=== PATIENT | male | born 1990 | race Caucasian/White ===

== ENCOUNTER 2023-04-04 05:05 | Emergency (ER) | payer SELFPAY ==
[2023-04-04 05:11] VITALS: BP 140/81; PULSE 69; RESP 16; TEMP 36.6; O2SAT 100
--- NOTE | 2023-04-04 05:27 | ED.ABDPAIN1 ---
HPI - Abdominal Pain General Chief Complaint: Abdominal Pain Stated Complaint: R FLANK PAIN Time Seen by Provider: 04/04/23 05:20 Source: patient Mode of arrival: walk-in Limitations: no limitations History of Present Illness HPI narrative: presents to the ER complaining of right back pain, right flank and RLQ pain for past 3 weeks. Pain has progressively worsened. no fever . No urinary symptoms. past cholecystectomy. 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 Also significant weight loss in the past year. MD elicited complaint: Reports abdominal pain Related Data Allergies Allergy/AdvReac Type Severity Reaction Status Date / Time No Known Drug Allergies Allergy Verified 04/04/23 05:15 Review of Systems ROS Status of ROS 10 or more systems reviewed and unremarkable except as noted in history and below [facility] Social History Smoking status: Current every day smoker Exam Constitutional Vital Signs, click to edit/add: Last Vital Signs Temp 97.9 F 04/04/23 05:11 Pulse 69 04/04/23 05:11 Resp 16 04/04/23 05:11 BP 140/81 04/04/23 05:11 Pulse Ox 100 04/04/23 05:11 O2 Del Method Room Air 04/04/23 05:11 Common normals: average body habitus, oriented x3 and no limitations General appearance: in distress (mild) HENMT Common normals: normocephalic and head/scalp atraumatic Eye Common normals: EOMs intact bilaterally and conjunctivae normal Respiratory Common normals: normal respiratory effort, no retractions, no use of accessory muscles and clear to auscultation bilaterally Cardio Common normals: regular rate, regular rhythm, S1 normal heart sound and S2 normal heart sound GI Common normals: Normal to inspection, nondistended, normoactive bowel sounds present Other: mod tenderness right CVA and RLQ Other: normal circumcised male. nontender testes. no swelling. mild right inguinal tenderness but no obvious hernia Back & Pelvis Other: right lumbar paravertebral tenderness, right CVA tenderness Extremity Common normals: normal to inspection and full ROM Neuro Common normals: oriented x3, CN's II-XII intact bilaterally, moves all extremities and no focal motor deficits Psych Appearance: grossly normal Course Vital Signs Vital signs: Vital Signs Temperature 97.9 F 04/04/23 05:11 Pulse Rate 69 04/04/23 05:11 Respiratory Rate 16 04/04/23 05:11 Blood Pressure 140/81 04/04/23 05:11 Pulse Oximetry 100 04/04/23 05:11 Oxygen Delivery Method Room Air 04/04/23 05:11 Temperature 97.9 F 04/04/23 05:11 Pulse Rate 69 04/04/23 05:11 Respiratory Rate 16 04/04/23 05:11 Blood Pressure 140/81 04/04/23 05:11 Pulse Oximetry 100 04/04/23 05:11 Oxygen Delivery Method Room Air 04/04/23 05:11 MDM - Abdominal Pain MDM Narrative Medical decision making narrative: 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 Pain right back radiating around into his right groin for 3 weeks that has progressed. Hurts when he coughs. Has tenderness right lumbar paravertebral, CVA and RLQ. CT abd/pelvis without acute findings. No relief with Toradol. Add norflex and solumedrol for pain. labs all neg including lactic acid and UA. care transferred to Dr Buchanan at change of shift to re evaluate response to medication for pain and disposition the patient. At this time the pain appears musculoskeletal Lab Data Labs: Lab Results 04/04/23 04/04/23 Range/Units 05:20 05:22 WBC 9.0 (4.0-11.0) 10^3/uL RBC 4.80 (4.70-6.10) 10^6/uL Hgb 14.5 (14.0-18.0) g/dL Hct 43.4 (42.0-54.0) % MCV 90.4 (80.0-94.0) fL MCH 30.2 (25.9-34.0) pg MCHC 33.4 (29.9-35.2) g/dL RDW 14.0 (11.0-15.0) % Plt Count 294 (150-450) 10^3/uL MPV 10.4 (9.5-13.5) fL Neut % (Auto) 66.2 (43.0-75.0) % Lymph % (Auto) 21.9 (20.5-60.0) % [place] % (Auto) 9.2 (1.7-12.0) % Eos % (Auto) 1.7 (0.9-7.0) % Baso % (Auto) 0.6 (0.2-2.0) % Neut # (Auto) 6.0 (1.4-6.5) 10^3/uL Lymph # (Auto) 2.0 (1.2-3.8) 10^3/uL Emm[place] # (Auto) 0.8 (0.3-0.8) 10^3/uL Eos # (Auto) 0.2 (0.0-0.7) 10^3/uL Baso # (Auto) 0.1 (0.0-0.1) 10^3/uL Abs Immat Gran (auto) 0.04 H (0.00-0.03) 10^3/uL Imm/Tot Granulo (auto) 0.4 (0.0-0.5) % Sodium 135 L (136-145) mmol/L Potassium 4.0 (3.5-5.1) mmol/L Chloride 103 (98-107) mmol/L Carbon Dioxide 29.5 (21.0-32.0) mmol/L Anion Gap 6.5 BUN 7.0 (7.0-18.0) mg/dL Creatinine 0.84 (0.70-1.30) mg/dL Est GFR ( Amer) >60 (>=60) Est GFR (Non-Af Amer) >60 (>=60) BUN/Creatinine Ratio 8.3 Glucose 86 (74-106) mg/dL Lactate 0.7 (0.4-2.0) mmol/L Calcium 9.5 (8.5-10.1) mg/dL Total Bilirubin 0.9 (0.2-1.0) mg/dL AST 28 (15-37) U/L ALT 41 (16-63) U/L Alkaline Phosphatase 68 (46-116) U/L Total Protein 7.8 (6.4-8.2) g/dL Albumin 4.0 (3.4-5.0) g/dL Globulin 3.8 g/dL Albumin/Globulin Ratio 1.1 Lipase 18.0 (16.0-77.0) U/L Urine Color Lt. yellow (YELLOW) Urine Clarity Clear (CLEAR) Urine pH 7.0 (5.0-9.0) Ur Specific [place] 1.010 (1.005-1.025) Urine Protein Negative (NEG/TRACE) mg/dL Urine Glucose (UA) Negative (NEGATIVE) mg/dL Urine Ketones Negative (NEGATIVE) mg/dL Urine Occult Blood Negative (NEGATIVE) Urine Nitrite Negative (NEGATIVE) Urine Bilirubin Negative (NEGATIVE) Urine Urobilinogen 0.2 (0.2-1.0) EU/dL Ur Leukocyte Esterase Negative (NEGATIVE) Discharge Plan Discharge Chief Complaint: Abdominal Pain Clinical Impression: Abdominal pain Referrals: Physician,Non-Staff, MD [Primary Care Provider] - 1 week
--- NOTE | 2023-04-04 05:30 | CT_ITS ---
[address] [address] Patient Name: MANUEL CANNON MRN: [id number] date: 1990 Sex: M Assigned Patient Location: ER Current Patient Location: ER Accession/Order Number: [id number] Exam Date: 04/04/2023 05:39 Report Date: 04/04/2023 06:07 At the request of: JORDAN DICK Procedure: CT abdomen pelvis wo con EXAMINATION: CT abdomen pelvis wo con HISTORY: right flank pain COMPARISON: No relevant comparison available. TECHNIQUE: Axial, Coronal, and Sagittal images were obtained without and/or with IV contrast as indicated by examination type. Dose reduction techniques were achieved by using automated exposure control and/or adjustment of mA and/or kV according to patient size and/or use of iterative reconstruction technique. FINDINGS: LUNG BASES: No visible pulmonary or pleural disease. LIVER: No enlargement, atrophy, suspicious density, or significant focal lesion. BILIARY: Cholecystectomy. PANCREAS: No lesion, fluid collection, or abnormal duct dilatation. SPLEEN: No enlargement or focal lesion. ADRENALS: No mass or enlargement. KIDNEYS: No mass, obstruction, or calcification. BOWEL/MESENTERY: No visible mass, obstruction, or bowel wall thickening. Normal appendix. AORTA/VASCULAR: No aneurysm or dissection. RETROPERITONEUM: No mass or adenopathy. LYMPH NODES: No adenopathy. URINARY BLADDER: Empty. No visible focal wall thickening, lesion, or calculus. PELVIC ORGANS: No visible mass. Pelvic organs appropriate for patient age. ABDOMINAL WALL: No mass or hernia. BONES: No bony lesion or fracture. OTHER: Negative. CT/CT abdomen pelvis wo con IMPRESSION: 1. No acute or suspicious findings to account for patient's symptoms. Electronically authenticated by: ASHELY GARAY Date: 04/04/2023 06:07
--- NOTE | 2023-04-04 05:43 | PC.NURSE ---
Pt presents to ER for right sided flank pain that wraps around the front and into his groin Pt states he has had a cough and lower back pain for 2 weeks but it has gotten worse and tonight the pain became unbearable Pt states the worst of the pain is below his right ribs Pt is tender to palpation in flank and right sided abdomen Pt states the last several times he has urinated he has had a difficult time, but it has not been painful Pt does appear to be in discomfort and distress when coughing
[2023-04-04] MEDS: KETOROLAC TROMETHAMINE 30 MG/ML VIAL IM (05:59)
[2023-04-04] MEDS: 0.9 % SODIUM CHLORIDE 1,000 ML 999 ML IV (05:59)
[2023-04-04 06:22] LABS: Basophils Absolute Auto 0.1 10^3/uL (0.0-0.1); Basophils Percent Auto 0.6 % (0.2-2.0); Eosinophils Absolute Auto 0.2 10^3/uL (0.0-0.7); Eosinophils Percent Auto 1.7 % (0.9-7.0); Hematocrit 43.4 % (42.0-54.0); Hemoglobin 14.5 g/dL (14.0-18.0); Immature Granulocytes Abs Auto 0.04 10^3/uL (0.00-0.03); Immature Granulocytes Pct Auto 0.4 % (0.0-0.5); Lymphocytes Percent Auto 21.9 % (20.5-60.0); Mean Corpuscular HGB Conc 33.4 g/dL (29.9-35.2); Mean Corpuscular Hemoglobin 30.2 pg (25.9-34.0); Mean Corpuscular Volume 90.4 fL (80.0-94.0); Mean Platelet Volume 10.4 fL (9.5-13.5); Monocytes Absolute Auto 0.8 10^3/uL (0.3-0.8); Monocytes Percent Auto 9.2 % (1.7-12.0); Neutrophils Percent Auto 66.2 % (43.0-75.0); Platelet Count 294 10^3/uL (150-450)
[2023-04-04 06:23] LABS: Bilirubin Urine NEGATIVE (NEGATIVE); Blood Urine NEGATIVE (NEGATIVE); Clarity Urine CLEAR (CLEAR); Color Urine LT. YELLOW (YELLOW); Glucose Urine UA NEGATIVE (NEGATIVE); Ketones Urine NEGATIVE (NEGATIVE); Leukocyte Esterase Urine NEGATIVE (NEGATIVE); Nitrite Urine NEGATIVE (NEGATIVE); Protein Urine NEGATIVE (NEG/TRACE); Urine Microscopic Indicated NO; Urobilinogen Urine 0.2 EU/dL (0.2-1.0)
[2023-04-04] MEDS: ORPHENADRINE 60 MG/ 2 ML VIAL IV (06:31)
[2023-04-04 06:38] LABS: Alanine Aminotransferase 41 U/L (16-63); Albumin Globulin Ratio 1.1; Alkaline Phosphatase 68 U/L (46-116); Anion Gap 6.5; Aspartate Amino Transferase 28 U/L (15-37); BUN Creatinine Ratio 8.3; Bilirubin Total 0.9 mg/dL (0.2-1.0); Calcium 9.5 mg/dL (8.5-10.1); Carbon Dioxide 29.5 mmol/L (21.0-32.0); Chloride 103 mmol/L (98-107); Estimated GFR (African America >60 (>=60); Estimated GFR (Non-African Ame >60 (>=60); Globulin 3.8 g/dL; Glucose 86 mg/dL (74-106); Sodium 135 mmol/L (136-145); Total Protein 7.8 g/dL (6.4-8.2)
[2023-04-04 06:40] LABS: Lactate/Lactic Acid 0.7 mmol/L (0.4-2.0)
[2023-04-04] MEDS: METHYLPREDNISOLONE SOD SUCC PF 125 MG/2 ML VIAL IVP (07:01)
[2023-04-04 07:06] VITALS: BP 109/55; PULSE 66; RESP 18; O2SAT 100
== END 2023-04-04 07:17 | disposition home or self-care (01) ==
PROVIDERS: Internal Medicine; Emergency Provider Emergency Medicine
DX: S39.011A Strain of muscle, fascia and tendon of abdomen, initial encounter (principal); R10.9 Unspecified abdominal pain; X50.0XXA Overexertion from strenuous movement or load, initial encounter; Z90.49 Acquired absence of other specified parts of digestive tract; F17.210 Nicotine dependence, cigarettes, uncomplicated
CPT/HCPCS: 36415; 74176; 80053; 81003; 83605; 83690; 85025; 96372; 96374; 96375; 99284; J1885; J2360; J2930

== ENCOUNTER 2024-10-18 13:01 | Emergency (ER) | payer BC, SELFPAY ==
[2024-10-18 13:06] VITALS: BP 117/72; PULSE 79; TEMP 36.6; O2SAT 99; BMI 28.9
--- OUTSIDE RECORDS SUMMARY | 2024-10-18 13:09 | XMS_ITS | CCD ---
Author Organization [facility] Care Team Providers Care Technical Sales Support Manager Name Role Phone UNKNOWN, PROVIDER Unavailable Unavailable TUPA Unavailable Unavailable MUKUND SNELL Unavailable Unavailable PERRY, JIANLIN Unavailable Unavailable [place] Unavailable Unavailable PERRY, JIANLIN Unavailable Unavailable JINA SRIVASTAVA Primary Care Physician [phone] NO FAMILY, PHYSICIAN Primary Care Provider Unava ilable DO Oleg Xavier Emergency Provider [phone] Oleg Xavier Attending Unavailable Oleg Xavier Admitting Unavailable NO FAMILY, PHYSICIAN Primary Care Unavailable [place] DODylan Primary Care Provider [phone] Unallocated , [place] Provider Primary Care Provi marli CUTLER, DYLAN L Attending Unavailable CUTLER, DYLAN L Referring Unavailable CUTLER, DYLAN L Attending Unavailable CUTLER, DYLAN L Referring Unavailable CUTLER, DYLAN L Referring Unavailable Allergies Allergy Classification Reported Allergen(s) Allergy Type Date of Onset Reaction(s) Facility (1 source) HYDROcodone Drug Allergy 7 AOF [facility] Repository (3 sources) Bee/Wasp/Ant venom Drug allergy Swelling (morphologic abnormality) [facility] Edgar (2 sources) venom-honey bee; Translations: [venom-honey bee] Allergy to substance 3 Anaphylaxis [facility] Medications Current Medications Medication Drug Class(es) Dates Sig (Normalized) Sig (Original) acetaminophen 325 mg / HYDROcodone bitartrate 5 mg oral tablet (3 sources) Opioid Agonist Start: 04-26-2021 take 1 tablet by mouth every six hours Crucible 325 mg-5 mg oral tablet 1 tab(s), Oral, q6hr, 10 tab(s), Refill(s) 0, [facility], 176, cm, 04/26/21 15:30:00 EST, Height/Length Dosing, 128.1, kg, 04/26/21 15:30:00 EST, Weight Dosing Start Date: 04/26/21 Status: Ordered diazePAM 10 mg oral tablet (3 sources) Benzodiazepine Start: 04-26-2021 take 1 tablet by mouth once Valium 10 mg Tab 10 mg = 1 tab(s), Oral, Once, # 1 tab(s), Refills(s) 0, [facility]: [facility], 176, cm, 04/26/21 15:30:00 EST, Height/Length Dosing, 128.1, kg, 04/26/21 15:30:00 EST, Weight Dosing Start Date: 04/26/21 Status: Ordered ondansetron 4 mg disintegrating oral tablet (3 sources) Serotonin-3 Receptor Antagonist Start: 09-20-2020 take 4 mg by mouth every six hours Ondansetron Active 4 MG PO Q6H September 20, 2020 12:00am Start: 07-09-2018 End: 02-04-2020 take 4 mg by mouth every six hours Ondansetron Discontinued 4 MG PO Q6H July 09, 2018 12:00am February 04, 2020 8:38am Start: 01-29-2017 End: 02-01-2017 take 1 tablet by mouth every eight hours Ondansetron (Zofran Odt) 8 mg tablet,disintegrating Discontinued 8 MG PO Q8H January 29, 2017 1:00am February 01, 2017 2:02am 24 hr oxybutynin chloride 5 mg extended release oral tablet (4 sources) Cholinergic Muscarinic Antagonist Start: 03-14-2024 End: 03-14-2025 take 1 tablet by mouth once daily oxybutynin XL (Ditropan-XL) 5 MG 24 hr tablet Indications: Overactive bladder Take 1 tablet (5 mg) by mouth Daily Do not crush, chew, or split. 90 tablet 3 03/14/2024 03/14/2025 Active Completed/Discontinued Medications Medication Drug Class(es) Dates Sig (Normalized) Sig (Original) acetaminophen 500 mg oral tablet (1 source) Start: 01-21-2017 End: 01-31-2017 take 2 tablets by mouth every six hours Acetaminophen (Tylenol Extra Strength) 500 mg Tablet Discontinued 1000 MG PO Q6H January 21, 2017 1:00am January 31, 2017 12:08pm acetaminophen 325 mg / oxyCODONE hydrochloride 5 mg oral tablet (1 source) Opioid Agonist Start: 02-08-2017 End: 07-09-2018 take 1 tablet by mouth once daily Oxycodone-Acetamin ophen (Percocet) 5-325 mg Tablet Discontinued 1 TAB PO Daily February 08, 2017 1:00am July 09, 2018 10:32am [id number] 200 actuat albuterol 0.09 mg/actuat metered dose inhaler (1 source) beta2-Adrenergic Agonist Start: 02-04-2020 End: 04-03-2020 Albuterol Sulfate (Ventolin Hfa) 90 mcg/actuation HFA aerosol inhaler Discontinued 2 INH INHALATION every 6 to 8 hours February 04, 2020 1:00am April 03, 2020 12:44pm azithromycin 250 mg oral tablet (1 source) Macrolide Antimicrobial Start: 02-04-2020 End: 04-03-2020 Azithromycin Discontinued 0 PO .COMPLEX February 04, 2020 1:00am April 03, 2020 12:44pm take 500 mg today (day 1), then 250 mg for 4 days (days 2-5) diclofenac sodium 75 mg delayed release oral tablet (1 source) Nonsteroidal Anti-inflammatory Drug Start: 04-03-2020 End: 07-31-2020 take 75 mg by mouth twice daily Diclofenac Sodium Discontinued 75 MG PO Twice daily April 03, 2020 1:00am July 31, 2020 9:41am promethazine hydrochloride 25 mg oral tablet (2 sources) Phenothiazine Start: 02-08-2017 End: 07-09-2018 take 25 mg by mouth every six hours Promethazine Discontinued 25 MG PO Q6H February 08, 2017 1:00am July 09, 2018 10:32am Start: 01-22-2017 End: 01-31-2017 take 25 mg by mouth three times daily Promethazine Discontinued 25 MG PO Three times daily January 22, 2017 1:44am January 31, 2017 12:08pm Problems Active Problems Problem Classification Problem Date Documented Da te Episodic/Chronic Abdominal pain (2 sources) Epigastric pain; Translations: [Epigastric pain] 09-20-2020 Episodic Administrative/social admission (2 sources) Patient encounter status; Translations: [Encounter for blood-alcohol and blood-drug test] 09-16-2024 Episodic Biliary tract disease (6 sources) Cholecystitis, unspecified; Translations: [Calculus of gallbladder with acute cholecystitis without obstruction] Onset: 02-01-2017 02-01-2017 Episodic Contraceptive and procreative management (4 sources) Sterilization requested; Translations: [Encounter for sterilization] Onset: 06-10-2021 Episodic Genitourinary symptoms and ill-defined conditions (2 sources) Urinary incontinence; Translations: [Unspecified urinary incontinence] 02-08-2024 Chronic Genitourinary symptoms and ill-defined conditions (2 sources) Increased frequency of urination; Translations: [Frequency of micturition] 02-08-2024 Episodic Immunizations and screening for infectious disease (1 source) Contact with or exposure to other viral diseases; Translations: [COVID-19 ruled out by laboratory testing] 07-31-2020 Episodic Nausea and vomiting (3 sources) Nausea, vomiting and diarrhea; Translations: [Nausea with vomiting, unspecified] 09-20-2020 Episodic Other diseases of bladder and urethra (1 source) Overactive bladder; Translations: [Overactive bladder] 03-14-2024 Chronic Other gastrointestinal disorders (1 source) Diarrhea; Translations: [Diarrhea, unspecified] 07-09-2018 Episodic Other lower respiratory disease (1 source) Cough; Translations: [Cough] 07-04-2020 Episodic Other nutritional; endocrine; and metabolic disorders (3 sources) Body mass index 40+ - severely obese 04-26-2021 Chronic Other nutritional; endocrine; and metabolic disorders (3 sources) Unintentional weight loss; Translations: [Abnormal weight loss] 02-08-2024 Episodic Other screening for suspected conditions (not mental disorders or infectious disease) (4 sources) Finding related to measurement of toxic substance; Translations: [Abnormal level of other drugs, medicaments and biological substances in specimens from other organs, systems and tissues] 01-29-2017 Episodic Other upper respiratory infections (2 sources) Viral upper respiratory tract infection; Translations: [Acute upper respiratory infection, unspecified] Onset: 12-08-2022 12-08-2022 Episodic Substance-related disorders (2 sources) Nicotine dependence, cigarettes, uncomplicated; Translations: [Cocaine abuse] Onset: 02-01-2017 02-08-2017 Chronic Superficial injury; contusion (1 source) Contusion of left hand; Translations: [Contusion of left hand, initial encounter] 04-03-2020 Episodic Viral infection (1 source) Viral disease; Translations: [Viral infection, unspecified] 07-12-2020 Episodic Past or Other Problems Problem Classification Problem Date Documented Da te Episodic/Chronic Mood disorders (7 sources) Mood disorders Onset: 02-08-2024 02-08-2024 Unclassified (2 sources) Unknown / UNK(Unknown) Onset: 02-01-2017 Results Test Name Value Interpretation Reference Range Facility US RENAL COMPLETEon 03-12-19 US RENAL COMPLETE EXAM: Retroperitonea l Ultrasound: REASON FOR EXAM: Urinary incontinence. TECHNIQUE: Transabdominal scanning was performed, including color Doppler. FINDINGS: Right kidney: Normal renal cortical echogenicity. No stone, mass or hydronephrosis. Blood flow is intact with color Doppler. No cysts are identified. Left kidney: Normal renal cortical echogenicity. No stone, mass or hydronephrosis. Blood flow is intact with color Doppler. No cysts are identified. Bladder: No wall thickening or mass. Bilateral ureteral jets are noted with color Doppler. Prevoid bladder volume 234 cc, post void bladder volume 3 cc. Aorta: Normal. Inferior vena cava: Normal. Other: None. Measurements: Right Kidney: 11.4 x 6.8 x 5.8 cm Left Kidney: 11.1 x 4.5 x 5.6 cm Bladder: Prevoid: 234.3 cc Postvoid: 2.7 cc PVR: 1% IMPRESSION: Normal retroperitoneal ultrasound. *This report is generated using voice recognition reporting ([employer]). On occasion [employer] erroneously drops words from the report or replaces the spoken word with similar sounding words. Please call with any questions/concerns regarding this report.* Dictated and transcribed 03/13/24/dpd This report has been electronically signed and approved by the interpreting radiologist. Normal Not Available Comment on above: Order Comment: Pleas e include PVR Laboratory - Hematology and Cell countson 02-08-2024 HbA1c (Bld) [Mass fraction] 5.5 % [facility] No Panel Informationon 02-07 Interpretation and review of laboratory results Normal [facility] Urinalysis macro (dipstick) panel (U)on 02-08-2024 Bilirubin, UA Negative Negative - 4(70) +++ mg/dL [facility] Blood, UA Negative Negative - 50 Anupam/mcL [facility] Clarity, UA Clear [facility] Color, UA Louise [facility] Glucose, UA Negative Negative - 1999(110) ++++ mg/dL [facility] Interpretation and review of laboratory results Normal [facility] Ketones, UA Negative Negative - 160(16) ++++ mg/dL [facility] Leukocytes, UA Negative Negative - 500+++ Esperanza/mcL [facility] Nitrite, UA Negative Negative - Positive [facility] pH, UA 7 5 - 9 [facility] Protein, UA Negative Negative - 1999(20) ++++ mg/dL [facility] Spec Grav, UA 1.02 1 - 1.03 [facility] Urobilinogen, UA 0.2 0.2 - 12 mg/dL [facility] COVID CepheidOrdered By: Harmeet Xavier on 12-08-2022 SARS-CoV-2 (COVID-19) RNA KRISTEL+probe Ql (Unsp spec) [facility] SARS-CoV-2 (COVID-19) Ab IA Ql Negative Negative [facility] Comment on above: This is a duplicate Cepheid Xpert Xpress CoV-2/Flu/RSV Plus RNA by RT-PCR result to be used for statistical tracking purpose only. COVID-19 / Flu A/B / RSV PCR on 12-08-2022 SARS-CoV-2 (COVID-19) RNA KRISTEL+probe Ql (Unsp spec) COVID-19 Cepheid Result Negative for SARS-CoV-2 RNA by RT-PCR Flu A Cepheid Result Negative for Flu A RNA by RT-PCR Flu B Cepheid Result Negative for Flu B RNA by RT-PCR RSV Cepheid Result Negative for RSV RNA by RT-PCR COVID19 Blank Space ------ Reference: Negative COVID19 Blank Space ------ Cepheid Disclaimer The Cepheid Xpert Xpress CoV-2/Flu/RSV Plus has Cepheid Disclaimer not been FDA cleared or approved; this test has Cepheid Disclaimer been authorized by FDA under an EUA for use by Cepheid Disclaimer authorized laboratories; this test has been Cepheid Disclaimer authorized only for the simultaneous qualitative Cepheid Disclaimer detection and differentiation of nucleic acids from Cepheid Disclaimer SARS-CoV-2, influenza A, influenza B, and Cepheid Disclaimer respiratory syncytial virus (RSV), and not for any Cepheid Disclaimer other viruses or pathogens; and this test is only Cepheid Disclaimer authorized for the duration of the declaration that Cepheid Disclaimer circumstances exist justifying the authorization of Cepheid Disclaimer emergency use of in vitro diagnostic tests for Cepheid Disclaimer detection and/or diagnosis of COVID-19 under Cepheid Disclaimer Section 564(b)(1) of the Act, 21 U.S.C. 360bbb- Cepheid Disclaimer 3(b)(1), unless the authorization is terminated or Cepheid Disclaimer revoked sooner. PERFORMED BY: [place] [address] PATHOLOGIST CONFLICTS ANALYST YOAN LEMUS M.D. Normal [facility] Comment on above: Performed By: #### C OVID19 FLU RSV, CEPHEID NEG #### [address] Cepheid COVID PCR Negativeon 12-08-2022 SARS-CoV-2 (COVID-19) RNA KRISTEL+probe Ql (Unsp spec) Negative Normal Negative [facility] Comment on above: Result Comment: This is a duplicate Cepheid Xpert Xpress CoV-2/Flu/RSV Plus RNA by RT-PCR result to be used for statistical tracking purpose only. PERFORMED BY: [facility] [address] [place] [address] PATHOLOGIST CONFLICTS ANALYST YOAN LEMUS M.D. Performed By: #### C OVID19 FLU RSV, CEPHEID NEG #### [facility] [address] [place] [address] [facility] Quick Strepon 12-08-2022 Quick Strep Streptococcus pyogen es Ag [Presence] in Throat by Rapid immunoassay Negative for Group A Strep Antigen Note 1 NOTE 2 Results are those of a screening test. NOTE 3 If clinically indicated please order a culture. NOTE 4 NOTE 5 Reference range = Negative PERFORMED BY: [address] [place] [address] PATHOLOGIST CONFLICTS ANALYST YOAN LEMUS M.D. Normal [facility] Comment on above: Performed By: #### Q S #### [place] [id number] [facility] Streptococcus pyogenes antig en detectionOrdered By: Oleg Xavier on 12-08-2022 S. pyogenes Ag Ql (Unsp spec) [facility] Provider Letteron 06-28-2021 Provider Letter (Inserted Image. Roselia ble to display) June 28, 2021 MANUEL CANNON [address] [place] [address] MANUEL CANNON 1990 Dear Manuel, You missed your scheduled appointment on: June 28, 2021 and the purpose of this letter is to inform you of our *No Show Policy*. Our appointment slots fill rapidly and when we have a no show appointment that time is lost. We could have used that time slot to care for a patient who needed to see one of our providers. Therefore, we ask that you call 24 hours in advance to cancel your appointment. This policy is in place so that we can meet the needs of all of our patients and we do appreciate your understanding. Sincerely, [facility] [address] [place] [address] [facility] Coding Summary.on 06-20-2021 Coding Summary. [id number] Gh0b Ww+PGhlYWQ+LG3SBLLiS11ap KNawB6BN2gEHE8OQANTEJPAL Q1MEB2lcXB0AMnvC7MoyhNb CmrmdCXaPC35KSt9CMP8zOgw LAzjnV8lqJHuL7e7BuDiPR28 dM46TLgiBUOpJlD4EeXrkgah bWFy X1zrGnDmnSSaUnz+PHRhYmxl IHdpZHRoPScxMDAlJyBzdHls BE9pJq8qOYNfDTXrvHwhuGGn OiBj d1heZKHfCAojKS2ixTndM1Eo zBH0MXZyi1u7Mv49qLV+PHRk JPQ8mTgsGQzsi984YvYnu1kt IDM3 pBHpQDshTIM6S75it8H9SAQk UFPrFYH2yKQ3aD3miVvesotl M3ThfCWmQaQ3HKR0uKVfrY9y bGln udugpM7dMkk+D01BXG1DGJBQ VI1TQrn2N8MaWwqyzXC+PC90 MOYuZE18uKPdaEUma6fvmAz8 JzEw IRJiUYG1xEksRHero7YgSNJk Q98eiBXiq8V0OSOcdLxaoZIf TfRvvXD0nQ1zWRzjvotvh6kv dzsn Bgmpx5rdko90rG53Q03vCCar SABiYCM6BYSfKETmxFcgoe0g kW4mGe6+GGazs1emk2fmeDu9 IjIw JVBlcdIkhAtiKNB2z0DjXq46 G5GorBliu4OrGsr8to75aTEw q1O2uHM4IAdlZIIitW8mLDiq ZnQ6 TMHxQpKwlT13xVXiPIowAg6y iNdknSoeGE0aQGIbtwiyKICu vT0jAMBkqENilQtsLJ9kXSUm bjtm s705VpHoQHB8AZHdeGKgN1Yy sJ8nXsXvDJPbWGBwZ6HxuICk ZGzoD473OQdmWdF7WNZsecMs Y2Fs ZEDloRxoClW5i3M2Ns5Io6Mo pccxWVR7EMwfFJB8RyC7ChQw JvR8J1XjApe1KEPgwSgyKD8y J3Bh ZXFwuqiyglusuNI5SUTrPGIp sI71eDMvQIfkLl6ux3Q1l748 BWPmQZPlwO62Wu4gdCquGTCt dCBU wR1umhbbv3ipzknlNpTeLTZq FQz0LXc8HKZnaUxwKxDcHQD3 UvH4OBK0jFHgaN0zpGmhrncz dG9w Oyc+H20axZ7kMCM2KGQ5ynfb VKAdpwOzPE94FP84Y0LuDidb dGFibGU+HZGewsGsfAbwWS8d YmFj o0aln9OaGKbiU5KyOKQpAKzn Xpe9TSHhBXO1fUJ7yA1uSCSp FOdek6M1gWA9B2LxexWbfr7p b2xs XTZnNLbrV75rqKFcq0X2PFJd hIT1UZPosLxeWoPkaT20Ogr+ LAZhyKujl2ZwXygey8mgk1ka dGg9 MgVpNGLushQagVglTVJ8l0Py Bv56L92ePCzdNKBuIUScVDMm XWSvdDhylb1bkT4hUi3+PGNv bCB3 sBM3cN3tKTOgAbQ4KYimR284 UeAftOEjMhshe1qqx4pyhGa0 TqUbXLQdbpUytKgaCRJ1b9Bj Lz48 L00wHBqrZIEmKRQfWKJpQGLm vZbmtm8nnK0fHq2+OZ6zo2pp ay96uK85hZP+AMSqSDT9eIos PSdw PXGukE5qKRotVzQ2ARWuQdIi oK22eXPfEGjhOa3biQyfpFba HD7bMFWyioenr935XyHoo5us IDEw aRVnKOqpLHB6T40dy4X1PJKb XRPsIFW7sJD9bM5vtZjdjlrb bGVmdDsgdmVydGljYWwtYWxp Z246 IHRvcDsnPlBhdGllbnQgTmFt MPd3P7FrCww4EFDgaWvuEW3l rULdBExuNn1xrGxtjEijDD9t NTBp wuyhy217RlYjb0ngFWEekRNi YJpiCZW5A30it7R5VZXfOJOz KUY6sAR2aM9ixNsvyumioXHu dDsg aoVgpVuqTVskBYmpI610NGNd cKqtRqLionEsMZMzqWV0RN24 BT93tMGwp5V0oFC1O3HiXYZl bmct qcxszYX3IKMcEGSzqQ76Ve3d cQnmCd2uRLNrZEK2STQbxMTg E4SxbD3dBcZbKTZbUQAxN7Ek eHQt SEnmQ428BOkxEwM2NUCoiyPr P0RrTURblZznPgS6v3H3Tw1M U2J2FQ14IP87rLDnd2A4qOJ6 J3Bh CKBkqhwlgwckpHK8YSPqWFHb sW04Ty8rvCmeSo7tRZMyCUY1 KMMjcHLbQ0TfmK7tUuZwRAYz MDAw X8RseBKdFVjeC169ADxvQsI2 RMByiiLeB9LwPHKiwBwcGkT9 t2R0Ls5THUo1AG89QF91aLNo c3R5 iXX3R9LwSXKzlqmkgpulkEC1 IVUtFRWaxR61Tl4yfFydQm7z CAZoRLG0VALkrEWpI6MrlW3p OiAj JXYxXNNtI1EtsYHaMTxlR526 NAmkQlZ8DOKtneBuS9VjPQXo mYseHtV9a6Y5Hi9GSMFmGE56 IFR5 rDQ4QT42RV67M9NuCabyjIHg bGU+PHRhYmxlIHdpZHRoPScx ULNsTpQapUwsJY3mFc2aHLIf LWNv yBkuaSBbTbPpa6dcPOLhJVyj UW4npEovI8QanEA9VGYvs3k6 Pg45B82nL1BcsWX+PGNvbCB3 aWR0 vS4aYoMtZxO3OQwzI388QiDe gDSvTnhys5ucc2tipKx8XmX7 LOHipkUftCncMUL7z0JqJc12 Y29s IHdpZHRoPSIxNSUiIHZhbGln te3ntM3oXt3+MKReyIW8wZU4 jR4fPpQlWkE5AOtsW798VxUh cCIv Ljoxn6rgb4yjnSl4TjEsRIFi npPvtYwcFFD0j8FpHt15H0Ov zFvut1BjLsv5cu57qSIdr9O5 bGU9 W7ZqXMInqcwzfPXmpJnxVB8d GZKwmcifPZIioI3bIWPfW7m1 XkLgSkB4DNcrP2BraiZ7LHJo cHQg XYwgNGB2O96jv7X9WJJjKKUw LUP5wXJ0mR5spXfdmgzevAGr eNxyfeAwcYucSLfkSEkdQ453 IHRv bCtkAHDqbA1cHJCajEQziLqd DJ8eHLAxojgpErNKZcQPN5iy GG7SW4cYQGpwFOvmyYL+PHRk IHN0 vHsrDBitPGMlgQ9xEMTyL4y8 YnFcLqK5IXmiH1PyBDWmpzpo Cr53sH7tQtHvMyV7SPsyM8Jj bnQ6 ZSErjINvWKctQWY9J87iq7D5 YPCvQMWaCBM9oWB9nZ9reDtl bjogbGVmdDsgdmVydGljYWwt YWxp E184ZKOpoCjwAnKnBdMfZoX0 PHU7H0BrRye6PMQsvAadPB5f pYUbRKqyHu0gdIlipTjcHQ4s NTBp jjdzYTWstN5xMUVtlXOrbOns IG7cPKYlnyblh332BrMpTQX5 SXIdmFMpW1ApvW1eAbHuHUEj MDAw Q9BcrMEgVTfrO129GCduBtC8 TDFwmoLfW1GvQBCelTeoWrD1 f8H6Jh7bCjZYKFUhflehdBT+ PHRk QBP0yEslXWkuPUYolO4sQQIc X8o3PhZpKpQ2BFtqO8MsJFYx rpimLd07xZ4eVxSuIaL0QIyq O2Zv xsG8NBKecEPwJIneNGV4N38a o0O2FLTxQBCsDDQ3iGJ5xY8d bGlnbjogbGVmdDsgdmVydGlj YWwt WBvuY563GOXcdVakLm4ryYH5 A1PoUsk3TJEdlLpdFS8ysDMw MTfuIg1vqPxehPonME7xRXWc bjtw XBBehL9pHKCujDVkyMhzEX3g GHEpipnda040BrFxFCP9LVTf sQGsZ2LbxC3kIgZeZYUrDHBe O3Rl eVQwUJclY502MGpnYiL2HDXd dyPzT4VhEWIjdOffFeN3o2P5 Ku6YNWBmYMRnkORxEpD3X5Lk Pjwv dHI+FS79ACGiOA91wZSzqPCk e0wynQg4EiQnHGNvXFV2mTva VKmxu1RpAPBvU29hxFDhp1Q6 IGNv yAexuCWbXkQpgFQ4nR7hTJgr infni5edphijWlfvk9vbiv13 pJ36P87qGYsxFIIcHXCxEXEo IHZh tGpdkt3dcT5gOl7+PGNvbCB3 fNO1sH2rYaMrZaN6WSjfB037 PbOzeRCfSwomk6jjp2ualYa7 IjIw VBJvuwWxtCphDNA6y0UsWp34 Q53bHEzjGGYlXIMySQVaZBWb pHaakr8hqD5iUj6+IA1fz1ls cm91 dC91kDY+DQNhFBF9zEqcMMwn QXZsiD8gZXavFoZ3RYJbZvBk qK16hMJkYWeoHf5qdZdqgFni MC4w TDRmdyzvs450DtDxd8hzOEYd gRPcRDebIYH0G79zv1T0EJZq ALZwGIR6xPJ9rG4ayXxkjamt bGVm uLhshdFkvFmkBNmuSElwW007 VXXeoZadKdYaaZTlJ4kaiePC UY5dGycfgJI+MDUpNYN6nVjs PSdw MEEboP6vIRKmJ4m3JqGlUwA2 TQbyG1EpxkZ5EIVwiHRrUUUf wUYYvS5gcxtzy2aaktdpEqXb MDAw KTi1XFs3SRYekWigKiNyOED2 VgC4DMX8yUHbjJ0atYbulqmq gE2dLxo+RklOOjwvdGQ+PHRk IHN0 zJtlJRhsYQOyoY5wFUVoZ5f2 SgEaKlF7WKmcX7ZgrhK1COEx cCMjBHNcjVXBwY9vzsped7cm cjog KsMoWHCmWVe3WEf4DQLjpCdl BeCnSOT0RxT2JFC8vEKjiW2h fIquyftcnC7fCdz+TVJOOjwv dGQ+ TNKcPQY8oTygUDlqNYWebC0u ZYQrX2h9WjTbXnW6FYyfC1Zh qzR3QZFhqHQgWKSqcWXNaR4e cztj y9wytchpYcOmVQHpENr3YOm3 SZOykZtaUxBzQEK5PuA1TTP8 fFIvcS2whYnhfnuyjZ2vMbk+ UGF5 UDF4ZA56VE08D6GrAuckpSQo bGU+PHRhYmxlIHdpZHRoPScx LZFvSgGheWhnSU6hDg7kQDYt LWNv bGxh (more content not included)... Normal [facility] Consent for Procedure/Surger yon 06-10-2021 Consent for Procedure/Surgery [id number]: 127 Normal [facility] Patient Educationon 06-11-19 22 Patient Education Urology Vasectomy, Care After This sheet gives you information about how to care for yourself after your procedure. Your health care provider may also give you more specific instructions. If you have problems or questions, contact your health care provider. What can I expect after the procedure? After your procedure, it is common to have: ? Mild pain, swelling, redness, or discomfort in your scrotum. ? Some blood coming from your incisions or puncture sites for one or two days. ? Blood in your semen. Follow these instructions at home: Medicines ? Take hmyo-nhw-cwxdovu and prescription medicines only as told by your health care provider. ? Avoid taking NSAIDs such as aspirin and ibuprofen, because these medicines can make bleeding worse. Activity ? For the first 2 days after surgery, avoid physical activity and exercise that require a lot of energy. Ask your health care provider what activities are safe for you. ? Do not participate in sports or perform heavy physical labor until your pain has improved, or until your health care provider says it is okay. ? Do not ejaculate for at least 1 week after the procedure, or as long as directed. ? You may resume sexual activity 7?10 days after your procedure, or when your health care provider approves. Use a different method of control (contraception) until you have had test results that confirm that there is no sperm in your semen. Scrotal support ? Use scrotal support, such as a jock strap or underwear with a supportive pouch, as needed for one week after your procedure. ? If you feel discomfort in your scrotum, you may remove the scrotal support to see if the discomfort is relieved. Sometimes scrotal support can press on the scrotum and cause or worsen discomfort. ? If your skin gets irritated, you may add some germ-free (sterile), fluffed bandages or a clean washcloth to the scrotal support. General instructions ? Put ice on the injured area: ? Put ice in a plastic bag. ? Place a towel between your skin and the bag. ? Leave the ice on for 20 minutes, 2?3 times a day. ? Check your incisions or puncture sites every day for signs of infection. Check for: ? Redness, swelling, or pain. ? Fluid or blood. ? Warmth. ? Pus or a bad smell. ? Leave stitches (sutures) in place. The sutures will dissolve on their own and do not need to be removed. ? Keep all follow-up visits as told by your health care provider. This is important because you will need a test to confirm that there is no sperm in your semen. Multiple ejaculations are needed to clear out sperm that were beyond the vasectomy site. You will need one test result showing that there is no sperm in your semen before you can resume unprotected sex. This may take 2?4 months after your procedure. ? Do not drive for 24 hours if you were given a sedative to help you relax. Contact a health care provider if: ? You have redness, swelling, or more pain around your incision or puncture site, or in your scrotum area in general. ? You have bleeding from your incision or puncture site. ? You have pus or a bad smell coming from your incision or puncture site. ? You have a fever. ? Your incision or puncture site opens up. Get help right away if: ? You develop a rash. ? You have difficulty breathing. Summary ? After your procedure it is common to have mild pain, swelling, redness, or discomfort in your scrotum. ? Avoid physical activity and exercise that requires a lot of energy for the first 2 days after surgery. ? Put ice on the injured area. Leave the ice on for 20 minutes, 2?3 times a day. ? Do not drive for 24 hours if you were given a sedative to help you relax. This information is not intended to replace advice given to you by your health care provider. Make sure you discuss any questions you have with your health care provider. Document Released: 09/08/2005 Document Revised: 02/01/2018 Document Reviewed: 05/18/2017 [employer] Patient Education ? 2020 [employer] Richie. Jacoby Baptiste [facility] Urology Office/Clinic Noteon 06-10-2021 Urology Office/Clinic Note Chief Complaint Vasectomy HPI Staff This is a 31 year old male here for a Vasectomy. History of Present Illness Tests reviewed: reviewed UA I have reviewed the previous health record information and history for this patient from Dr. Rico I have reviewed and verified the staff HPI to be accurate for this encounter. There have been no associated fever, chills, flank pain, or blood in the urine. Denies any urinary infections since last encounter. Review of Systems ROS - Provider Constitutional: denies weight loss, denies hot flashes. Eyes: denies eye problems. Gastrointestinal: denies nausea, denies vomiting. Cardiovascular: denies chest pain or angina. Integumentary: no dryness Musculoskeletal: denies musculoskeletal symptoms. ENMT: denies otolaryngeal symptoms. Respiratory: no shortness of breath. Heme/Lymph: denies easy bleeding tendency, denies easy bruising tendency. Psychiatric: no confusion, no anxiety. Genitourinary: See HPI. Physical Exam Vitals & Measurements HT: 176 cm HT: 176.0 cm WT: 128 kg WT: 128.0 kg BMI: 41.32 General Appearance: alert, no distress, well nourished, well developed male. Genitourinary: normal scrotum, normal testes, normal urethra, normal epididymis, normal vas deferens/spermatic cord. Flank Pain: none. Bladder: nonpalpable Procedure Operative Information Anesthesia Type: Local Procedure: Vasectomy Complications: None Surgical risks, benefits, details of the procedure have been explained to the patient. Full informed consent has been obtained. Intraoperative Information The patient is brought back to the operating room and placed in the supine position. He is prepped appropriately and draped. The skin and vas deferens are then anesthetized and the incision is made and carried down through the scrotal skin down to the level of the vas deferens which has been isolated. The bilateral segmental vasectomy is performed and the proximal and distal ends are ligated, isolated from each other, and allowed to fall back into the scrotal incision. The skin is then closed with interrupted sutures after hemostasis is achieved with electrocautery. Postoperative Information He tolerated the procedure well and is subsequently discharged home on oral antibiotics and with the discharge instructions. Assessment/Plan 1. Encounter for vasectomy (Z30.2: Encounter for sterilization) IO vasectomy performed w/o complications. All questions/concerns were discussed. Pt will give our office a call if he encounters any issues prior to next office visit. Pt understands and acknowledges. The patient tolerated the procedure well without complications. He should refrain from strenuous activity for the next 4-5 days and ice the scrotum as needed. The antibiotic course should be completed. The post-vasectomy instruction sheet is given to the patient. 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 Pain medicines have been provided. He is aware that he is not sterile until he has a negative semen analysis which will be checked after about two months and after 20-30 ejaculations. He should deliver the semen specimen to the lab within 30 min. of ejaculation and he will call one week later to get the results. Follow-up With When Contact Information JACKY SONI, Mendel Vincent, URL [address] [place], [place] [id number] Business (1) Additional Instructions: Patient Education Vasectomy, Care After I, Jenise Leo , personally scribed for Dr. Rico on 06/10/2021 08:03:16. . Documentation recorded by the scribe, Jenise Leo, accurately reflects the services(s) I performed and decisions made by me. Authenticated by Dr. Rico on 06/10/2021 08:08:43. Problem List/Past Medical History Ongoing BMI 40.0-44.9, adult Encounter for vasectomy Historical No qualifying data Procedure/Surgical History Cholecystectomy. Medications Crucible 325 mg-5 mg oral tablet, 1 tab(s), Oral, q6hr Valium 10 mg Tab, 10 mg= 1 tab(s), Oral, Once Allergies Bee Stings (Swelling) Social History Tobacco 10 or more cigarettes (1/2 pack or more)/day in last 30 days Tobacco Use:. Never Smokeless Tobacco Use:. Cigarettes, 06/10/2021 Immunizations Vaccine Date Status SARS-CoV-2 (COVID-19) Ad26 vaccine 11/2020 Recorded SARS-CoV-2 (COVID-19) Ad26 vaccine 10/2020 Recorded Normal [facility] Comment on above: Result Comment: Elec tronically Signed By: Mendel RICO MD\.br\Date and Time Signed: 06/10/21 08:09 EDT\.br\Electronically Co-Signed By: Jenise Leo\.br\Date and Time Co-Signed: 06/10/21 08:03 EDT Pre-Certification Formon Pre-Certification Form [id number] :[address] [facility] Formson 04-27-2021 Forms [id number]: [address] [facility] Patient Educationon 04-26-19 Patient Education Nutrition Calorie Counting for Weight Loss Calories are units of energy. Your body needs a certain amount of calories from food to keep you going throughout the day. When you eat more calories than your body needs, your body stores the extra calories as fat. When you eat fewer calories than your body needs, your body molina fat to get the energy it needs. Calorie counting means keeping track of how many calories you eat and drink each day. Calorie counting can be helpful if you need to lose weight. If you make sure to eat fewer calories than your body needs, you should lose weight. Ask your health care provider what a healthy weight is for you. For calorie counting to work, you will need to eat the right number of calories in a day in order to lose a healthy amount of weight per week. A dietitian can help you determine how many calories you need in a day and will give you suggestions on how to reach your calorie goal. ? A healthy amount of weight to lose per week is usually 1?2 lb (0.5?0.9 kg). This usually means that your daily calorie intake should be reduced by 500?750 calories. ? Eating 1,200 ? 1,500 calories per day can help most women lose weight. ? Eating 1,500 ? 1,800 calories per day can help most men lose weight. What is my plan? My goal is to have calories per day. If I have this many calories per day, I should lose around pounds per week. What do I need to know about calorie counting? In order to meet your daily calorie goal, you will need to: ? Find out how many calories are in each food you would like to eat. Try to do this before you eat. ? Decide how much of the food you plan to eat. ? Write down what you ate and how many calories it had. Doing this is called keeping a food log. To successfully lose weight, it is important to balance calorie counting with a healthy lifestyle that includes regular activity. Aim for 150 minutes of moderate exercise (such as walking) or 75 minutes of vigorous exercise (such as running) each week. Where do I find calorie information? The number of calories in a food can be found on a Nutrition Facts label. If a food does not have a Nutrition Facts label, try to look up the calories online or ask your dietitian for help. Remember that calories are listed per serving. If you choose to have more than one serving of a food, you will have to multiply the calories per serving by the amount of servings you plan to eat. For example, the label on a package of bread might say that a serving size is 1 slice and that there are 90 calories in a serving. If you eat 1 slice, you will have eaten 90 calories. If you eat 2 slices, you will have eaten 180 calories. How do I keep a food log? Immediately after each meal, record the following information in your food log: ? What you ate. Don't forget to include toppings, sauces, and other extras on the food. ? How much you ate. This can be measured in cups, ounces, or number of items. ? How many calories each food and drink had. ? The total number of calories in the meal. Keep your food log near you, such as in a small notebook in your pocket, or use a mobile august or website. Some programs will calculate calories for you and show you how many calories you have left for the day to meet your goal. What are some calorie counting tips? ? Use your calories on foods and drinks that will fill you up and not leave you hungry: ? Some examples of foods that fill you up are nuts and nut butters, vegetables, lean proteins, and high-fiber foods like whole grains. High-fiber foods are foods with more than 5 g fiber per serving. ? Drinks such as sodas, specialty coffee drinks, alcohol, and juices have a lot of calories, yet do not fill you up. ? Eat nutritious foods and avoid empty calories. Empty calories are calories you get from foods or beverages that do not have many vitamins or protein, such as candy, sweets, and soda. It is better to have a nutritious high-calorie food (such as an avocado) than a food with few nutrients (such as a bag of chips). ? Know how many calories are in the foods you eat most often. This will help you calculate calorie counts faster. ? Pay attention to calories in drinks. Low-calorie drinks include water and unsweetened drinks. ? Pay attention to nutrition labels for low fat or fat free foods. These foods sometimes have the same amount of calories or more calories than the full fat versions. They also often have added sugar, starch, or salt, to make up for flavor that was removed with the fat. ? Find a way of tracking calories that works for you. Get creative. Try different apps or programs if writing down calories does not work for you. What are some portion control tips? ? Know how many calories are in a serving. This will help you know how many servings of a certain food you can have. ? Use a measuring cup to measure serving sizes. You could (more content not included)... Normal [facility] Provider Letteron 04-26-2021 Provider Letter (Inserted Image. Roselia ble to display) April 26, 2021 MANUEL CANNON [address] [place] [address] MANUEL CANNON 1990 To Whom It May Concern, Please excuse above patient from work. Date of Illness: From: 06/10/21 To: 06/10/21 May Return to Work On: 06/13/21 Comments: Pt is scheduled for surgical procedure 06/10/21 Sincerely, Normal [facility] Urology Office/Clinic Noteon 04-26-2021 Urology Office/Clinic Note Chief Complaint Vasectomy consult. HPI Staff Manuel is a 30 year old male here today as a new patient for a vasectomy consult. Manuel has two kids in the process of adopting a 3rd child, Engaged and his fiance is on board with the vasectomy. No trama to testicles that he is aware of. Dysuria: _Denies Incomplete bladder emptying: _Denies Hematuria: _Denies visible blood Frequency: _Denies Urgency: _Denies Nocturia: _Sleep thought the night Stream: _steady stream Leaking: _Denies Post void dripping: _Denies Wearing pads/ Depends: _Denies Urge incontinence: _Denies Stress incontinence: _Denies Incontinence without Sensory Awareness: _Denies Abdominal pain: _Denies Flank pain: _Denies Sexual complaints: _ History of Present Illness Pt is here for Vasectomy Consult Pt has no associated symptoms, no fever, no chills, no flank pain. Review of Systems PHQ Score Initial Depression Screen Score: 0 ROS - Provider Constitutional: denies weight loss, denies hot flashes. Eyes: denies eye problems. Gastrointestinal: denies nausea, denies vomiting. Cardiovascular: denies chest pain or angina. Integumentary: no dryness Musculoskeletal: denies musculoskeletal symptoms. ENMT: denies otolaryngeal symptoms. Respiratory: no shortness of breath. Heme/Lymph: denies easy bleeding tendency, denies easy bruising tendency. Psychiatric: no confusion, no anxiety. Genitourinary: denies dysuria, denies hematuria, denies discharge, denies urinary frequency, denies urinary hesitancy, denies nocturia, denies incontinence, denies genital sores, denies decreased libido, and denies erectile dysfunction. Physical Exam Vitals & Measurements HR: 81(Peripheral) RR: 16 BP: 144/100 HT: 176.0 cm HT: 176 cm WT: 128.1 kg WT: 128.1 kg BMI: 41.35 General Appearance: alert, no distress, well nourished, well developed male. Head: normocephalic . Eyes: normal orbit and globe. ENMT: normal examination of external ears. Chest: Lungs CTA, respirations non labored. Cardiovascular: regular rate and rhythm. Abdomen: soft, non distended, no tenderness, no mass or organomegaly, no hernia. Genitourinary: normal scrotum, normal testes, normal urethra, normal epididymis, normal vas deferens/spermatic cord. Flank Pain: none. Bladder: nonpalpable. Penis: normal shaft, normal glans. Lymph Nodes: unremarkable palpation of the cervical area. Skin: warm, dry, no bruising. Psychiatric: cooperative, affect appropriate for age, normal judgement, euthymic mood. Assessment/Plan 1. Encounter for vasectomy (Z30.2: Encounter for sterilization) Will schedule Vasectomy. The procedural risks, benefits, details, and treatment alternatives of sterilization have been discussed with the patient today. He understands this procedure is considered permanent, even though vasectomy reversals can be performed. There is no guarantee of successful reversal resulting in , however. Risks discussed include bleeding, infection, failure with in about 1:2500, post-vasectomy syndrome (chronic pain in the testicle or scrotum), possible association with prostate cancer development in the future, and erection problems, among others. Despite these risks, he wishes to proceed. He also understands that he is not considered sterile until a negative semen sample has been received after about 2-3 months after the vasectomy. Full informed consent has been obtained. Will order Local anesthesia. The patient was given a full consultation regarding the different techniques of sterilization. We discussed in detail that sterilization should be considered as an irreversible procedure. He understands the different techniques that can be performed on either the man or the woman. We also discussed in general the different techniques and methods used for control. Follow-up With When Contact Information JACKY OSNI, Mendel Vincent, URL Additional Instructions: Patient Education Vasectomy, Care After Calorie Counting for Weight Loss Vesna Skaggs, personally scribed for Dr. Rico on 04/26/2021 15:48:14. . Documentation recorded by the scribe, Vesna Gallagher, accurately reflects the services(s) I performed and decisions made by me. Authenticated by Dr. Rico on 04/26/2021 15:51:33. Problem List/Past Medical History Ongoing BMI 40.0-44.9, adult Historical No qualifying data Procedure/Surgical History Cholecystectomy. Medications No active medications Allergies Bee Stings (Swelling) Social History Tobacco 10 or more cigarettes (1/2 pack or more)/day in last 30 days Tobacco Use:. Never Smokeless Tobacco Use:. Cigarettes, 04/26/2021 Immunizations Vaccine Date Status SARS-CoV-2 (COVID-19) Ad26 vaccine 11/2020 Recorded SARS-CoV-2 (COVID-19) Ad26 vaccine 10/2020 Recorded Lab Results Ambulatory Point of Care Results Bilirubin Urine Dipstick: Negative (04/26/21 1 (more content not included)... Normal [facility] Comment on above: Result Comment: Elec tronically Signed By: Mendel RICO MD\.br\Date and Time Signed: 04/26/21 15:51 EST\.br\Electronically Co-Signed By: Vesna Aguilera\.br\Date and Time Co-Signed: 04/26/21 15:48 EST Operative Reporton 7 Operative Report [id number] Room #: 4CD [id number] Discharge 02/02/2017 Date: Birthdate: 1990 OPERATIVE REPORTDATE OF SURGERY: 02/01/2017SURGEON: Olya Perry M.D.PREOPERATIVE DIAGNOSES: Acute cholecystitis and cholelithiasis.POSTOPERA TIVE DIAGNOSES: Acute cholecystitis and cholelithiasis.OPERATION PERFORMED: Single-incision laparoscopic cholecystectomy.ANESTHES IA: General endotracheal anesthesia.INDICATION: The patient is a 26-year-old white male with acute right upperquadrant pain. Gallbladder ultrasound showed cholelithiasis and thickeningof gallbladder with pericystic fluid and laparoscopic cholecystectomy isindicated. Informed consent was obtained.DESCRIPTION OF PROCEDURE: The patient was brought to the operating room,laid on the operative table in supine position. General anesthesia wasinitiated. Abdomen was prepped in the usual sterile fashion. Aftercompletion of time-out, a transumbilical 5 mm Optiview trocar was insertedunder direct vision. CO2 insufflation was started. Then, another 5 mmtrocar was inserted through the supraumbilical transumbilical incision intoperitoneal cavity, then the lower transumbilical 5 mm trocar was changed tothe 10 mm trocar. The patient was converted to the reverse Trendelenburgposition, tilted towards the left. The 2-0 silk retraction suture wasinserted through the right subcu to abdominal wall into peritoneal cavityand then passed through the fundus of the gallbladder to retract the fundusgallbladder superiorly. Aspiration needle was used to decompress thegallbladder to avoid spillage. Second retraction suture of 2-0 silk wasinserted through the right lower quadrant abdominal wall into peritonealcavity and then passed through the infundibulum of the gallbladder,retracted the infundibulum of the gallbladder laterally. Third retractionsuture was inserted through the subxiphoid abdominal wall into peritonealcavity and then passed through the infundibular gallbladder, retracted theinfundibular gallbladder medially. Electrocautery dissection on theinfundibulum was performed to achieve the critical view of Calot. Cysticduct and cystic artery were dissected out with blunt dissection. Cysticduct and cystic artery were double clipped proximally, single clippeddistally with the Hem-o-tatum, then divided with scissors. Then, gallbladderwas removed from liver bed with the electrocautery, then put into anEndoCatch bag. Small amount of blood and bile was cleaned by the 4 x 4gauze, then all the gauze was removed. Gallbladder was removed fromtransumbilical incision inside the EndoCatch bag. CO2 was desufflated.The trocarswere removed. Transumbilical incision fascia was closed by the 0 Wilkciosjjox-we-ksqzw suture. The skin was closed by the 4-0 Vicryl subcuticularsuture. Bacitracin ointment was applied to the umbilicus and the otherneedle insertion site. Operation was completed without complication. Iwas present during the entire operation.Electronically Signed by:Olya Perry M.D. 02/08/2017 07:02 P Olya Perry M.D.Date Dict: 02/06/2017/05:57 P/Olya Perry M.D.Date Trans: 02/07/2017 03:36 A/Sophia_JN:[id number] cc: Mukund Snell M.D. [address] [place] [facility] [address] Normal [facility] Discharge Summaryon 02-05-20 Discharge Summary [id number] Admitted: 02/01/2017 Discharged: 02/02/2017 Date of : 1990 Physician: Olya Perry M.D. DISCHARGE SUMMARYPRIMARY DIAGNOSIS: Acute cholecystitis.SECONDARY DIAGNOSIS: None.HOSPITAL COURSE: This is a 26-year-old male, who was transferred from [facility] with acute cholecystitis. The patient had CT scan findingof cholestasis as well as gallbladder sludge. He also had a gallbladderultrasound, which had the same finding without any pericholecystic fluid.The same day of the admission, the patient was taken back to the operationroom, where he underwent laparoscopic cholecystectomy. The patienttolerated surgery without any complication. The next day, we started thepatient on clear liquid diet and advanced to regular diet. The patient wastolerating regular diet without any nausea or vomiting. Pain waswell-controlled with oral pain medication. The patient was ambulatedwithout any difficulty. So, the plan was to discharge the patient home onoral pain medication.DISCHARGE CONDITION AND DISPOSITION: The patient was discharged to home ingood and stable condition.DISCHARGE INSTRUCTIONS:1. No lifting more than 20 pounds for 4 weeks.2. Low-fat diet for 2 weeks.3. Percocet for pain.4. Follow up with Dr. Perry in 1 to 2 weeks.Electronically Signed by:Olya Perry M.D. 02/05/2017 02:06 P Olya Perry M.D. I personally saw this patient on the day of the encounter, performed thekey portion(s) of the service and participated in the management andconfirm the resident's documentation. Please note there may be anadditional personal documentation from me. Date Dict: 02/03/2017/09:13 P/Agustina Forrest: 02/04/2017 06:18 P/mmoDN_JN:[id number] cc: [address] [place] [facility] [address] Normal [facility] BASIC METABOLIC PANELon 11-3 Calcium 7.8 mg/dL Low 8.6-10.3 [facility] Comment on above: Order Comment: No: D o not add to previous draw Performed By: #### 0 0071, [id number] ####[facility] [place] [address], [facility] Chloride 107 mmol/L Normal 98-107 [facility] Comment on above: Order Comment: No: D o not add to previous draw Performed By: #### 0 0071, [id number] ####[facility] [id number], [facility] CO2 28 mmol/L Normal 21-31 [facility] Comment on above: Order Comment: No: D o not add to previous draw Performed By: #### 0 0071, [id number] ####[facility] [place] [address], [facility] Creatinine 0.90 mg/dL Normal 0.70-1.30 [facility] Comment on above: Order Comment: No: D o not add to previous draw Performed By: #### 0 0071, [id number] ####[facility] [place] [address], [facility] eGFR (black) mL/min/{1.73_m2} Normal >60 [facility] Comment on above: Order Comment: No: D o not add to previous draw Performed By: #### 0 0071, [id number] ####[facility] [place] [address], [facility] eGFR (non-black) mL/min/{1.73_m2} Normal >60 Th e [facility] Comment on above: Order Comment: No: D o not add to previous draw Performed By: #### 0 0071, [id number] ####[facility] [place] [address], [facility] Glucose mass conc 87 mg/dL Normal 70-100 [facility] Comment on above: Order Comment: No: D o not add to previous draw Performed By: #### 0 0071, [id number] ####[facility] [place] [address], [facility] Potassium molar conc 4.1 mmol/L Normal 3.5-5.1 [facility] Comment on above: Order Comment: No: D o not add to previous draw Performed By: #### 0 0071, [id number] ####[facility] [place] [address], [facility] Sodium 138 mmol/L Normal 136-145 [facility] Comment on above: Order Comment: No: D o not add to previous draw Performed By: #### 0 0071, [id number] ####[facility] [facility] [address], [facility] Urea nitrogen 18 mg/dL Normal 7-25 [facility] Comment on above: Order Comment: No: D o not add to previous draw Performed By: #### 0 0071, [id number] ####[facility] [facility].[address] CBC COMPLETE BLOOD COUNTon 04-03-2016 Erythrocyte distribution width Auto Ratio (RBC) 14.3 % Normal 11.5-16.9 [facility] Comment on above: Order Comment: No: D o not add to previous draw Performed By: #### 5 0608 ####[facility] [place] [address], [facility] Erythrocytes (RBC) 3.95 mill/mm3 Low 4.30-5.90 [facility] Comment on above: Order Comment: No: D o not add to previous draw Performed By: #### 5 0608 ####[facility] Hematocrit (HCT) 35.8 % Low 39.0-55.0 [facility] Comment on above: Order Comment: No: D o not add to previous draw Performed By: #### 5 [id number] ####[facility] Hemoglobin mass conc (Bld) 12.1 g/dL Low 13.9-16.3 [facility] Comment on above: Order Comment: No: D o not add to previous draw Performed By: #### 5 [id number] ####[facility] [facility].[address] MCH 30.6 pg Normal 24.0-32.0 [facility] Comment on above: Order Comment: No: D o not add to previous draw Performed By: #### 5 [id number] ####[facility]3000 [facility].[address] MCHC mass conc (RBC) 33.8 g/dL Normal 32.0-36.0 [facility] Comment on above: Order Comment: No: D o not add to previous draw Performed By: #### 5 [id number] ####[facility] [facility].[address] MCV 90.7 fL Normal 80.0-100.0 [facility] Comment on above: Order Comment: No: D o not add to previous draw Performed By: #### 5 [id number] ####[facility] [facility] [place] [address], [facility] PLAT CNT 237 Thou/mm3 Normal 100-400 [facility] Comment on above: Order Comment: No: D o not add to previous draw Performed By: #### 5 [id number] ####[facility] [facility].[address] WBC (Leukocytes) 11.7 Thou/mm3 High 4.0-10.0 [facility] Comment on above: Order Comment: No: D o not add to previous draw Performed By: #### 5 [id number] ####[facility], [place] [address] History and Physicalon 02-01 History and Physical [id number] Admitted: 02/01/2017 Date of : 1990 Attending Physician: Zenon Islas M.D. Room #: [id number] Discharge Date: HISTORY AND PHYSICALCHIEF COMPLAINT: Abdominal pain.HISTORY OF PRESENT ILLNESS: This is a 26-year-old male, who presents as atransfer from an outside facility for abdominal pain. He was seen in theED on the for abdominal pain. A CT scan was obtained there, whichshowed cholelithiasis as well as gallbladder sludge. At that time, thedecision made for nonoperative management as the patient's symptoms weremore generalized abdominal pain rather than right upper quadrant pain. Thepatient then presented to the ED at an outside facility again on 01/31 withsevere right upper quadrant pain. Gallbladder ultrasound was obtained,which did show gallbladder wall thickening, but no pericholecystic fluid aswell as cholelithiasis. Upon entrance to the ED there, the patient's urinetox screen did test positive for cocaine. Decision was made to transferthe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 Patient Education 2020 [employer]. Follow Up Care 04/26/2021 16:03:28 With:Mendel RICO MD, URL Address: [address] [place], [place] [id number]- Business (1) When: Unknown [facility] Evaluation + Plan note Future Appointments Appointment Date:06/28/2021 02:45:00 PM Scheduled Provider:Mendel RICO MD Location:[facility] Appointment Type:URO Office Visit [facility] Evaluation note No assessment inform ation available [facility] Work Phone: Evaluation note Diagnosis Unintentional weight loss- Primary Loss of weight Urinary incontinence, unspecified type Screening for heart disease Screening for other and unspecified cardiovascular conditions Urinary frequency documented in this encounter [facility]* Diagnosis Abnormal TSH- Primary Unintentional weight loss Loss of weight documented in this encounter [facility]* Diagnosis Overactive bladder- Primary Hypertonicity of bladder documented in this encounter [facility]* Diagnosis Encounter for drug screening documented in this encounter [facility] course Narrative No data available for this section [facility] Discharge instructions No data available for this section [facility] Additional Instructions Follow-up with your primary care doctor Return to ED for develop worsening [facility] Work Phone: Summary Purpose Family History No Family History Records Found Relationship Condition Age at Onset Recorded Date/T tyler Not Specified No pertinent family history Unknown Advance Directives No Advanced Directives Records Found Advance Directive Response Recorded Date/ Time Advance Directives No January 11:53pm Chief Complaint and Reason for Visit Chief Complaint SoB/fever Additional Source Comments (unrecognized sect ion and content) No Status Records FoundNo Status Records FoundNo Status Records FoundNo Status Records Found INFORMATION SOURCE (unrecogn ized section and content) DATE CREATED AUTHOR 08/28/2017 [facility] DATE CREATED AUTHOR AUTHOR'S ORGANIZ ATION 07/01/2021 [facility] DATE CREATED AUTHOR AUTHOR'S ORGANIZ ATION 12/18/2022 [facility] DATE CREATED AUTHOR AUTHOR'S ORGANIZ ATION 10/18/2024 [facility] EPIC Care Teams (unrecognized sec tion and content) Team Status: Active Member Role Status Dates PHYSICIAN NO FAMILY Primary Care Provider Active Team Status: Inactive Member Role Status Dates PHYSICIAN NO FAMILY Primary Care Provider Active Oleg Xavier DO Emergency Provider Active Technical Sales Support Manager Relationship Specialty Start Date End Date Dylan Costa DO [address] [place] [address] PCP - General Family Medicine 02/08/24 Technical Sales Support Manager Relationship Specialty Start Date End Date Unallocated, Noms MD [address] [place] [address] PCP - General 01/01/23 Technical Sales Support Manager Relationship Specialty Start Date End Date Dylan Costa DO [address] [place] [address] PCP - General Family Medicine 02/08/24 Technical Sales Support Manager Relationship Specialty Start Date End Date Dylan Costa DO [address] [place] [address] PCP - General Family Medicine 02/08/24 Technical Sales Support Manager Relationship Specialty Start Date End Date Dylan Costa DO [address] [place] [address] PCP - General Family Medicine 02/08/24 Technical Sales Support Manager Relationship Specialty Start Date End Date Dylan Costa DO [address] [place] [address] PCP - General Family Medicine 02/08/24 Goals (unrecognized section and content) Goals may be documented in a n alternate section Reason for Visit (unrecogniz ed section and content) Reason Comments Establish Care Reason Onset Date Comments Appointment 10/16/2024 FOR RECORDS PERTAINING TO PATIENTS WHO ARE OR HAVE BEEN ENROLLED IN A CHEMICAL DEPENDENCY/SUBSTANCEABUSE PROGRAM, SOME INFORMATION MAY BE OMITTED. This clinical summary was aggregated from multiple sources. Caution should be exercised in using it in the provision of clinical care. This summary normalizes information from multiple sources, and as a consequence, information in this document may materially change the coding, format and clinical context of patient data. In addition, data may be omitted in some cases. CLINICAL DECISIONS SHOULD BE BASED ON THE PRIMARY CLINICAL RECORDS. [employer] [facility]. provides no warranty or guarantee of the accuracy or completeness of information in this document.
--- NOTE | 2024-10-18 13:56 | CT_ITS ---
The [address] [address] Patient Name: MANUEL CANNON MRN: [id number] date: 1990 Sex: M Assigned Patient Location: ER Current Patient Location: ER Accession/Order Number: [id number] Exam Date: 10/18/2024 15:52 Report Date: 10/18/2024 15:56 At the request of: MICHEAL POTTS MD Procedure: CT abdomen pelvis w con CT ABDOMEN AND PELVIS WITH INTRAVENOUS CONTRAST: CLINICAL HISTORY: Right lower quadrant pain, rule out appendicitis COMPARISON: CT abdomen and pelvis 04/04/2023 TECHNIQUE: Spiral images were obtained through the abdomen and pelvis following the administration of intravenous contrast. This CT exam was performed using one or more following dose reduction techniques: Automated exposure control, adjustment of the mA and/or kV according to patient size, or use of iterative reconstruction technique. FINDINGS: Lung Bases: [No acute findings.] Organs:Liver portal vein gallbladder pancreas spleen adrenal glands kidneys and aorta all appear unremarkable.[ GI: Stomach is grossly unremarkable. Small bowel appears nondilated. Appendix is normal. No acute colonic abnormality.[ Pelvis:[Urinary bladder and prostate gland appear unremarkable.] Peritoneum/Retroperitoneum:No free air or free fluid or lymphadenopathy.[ Abd wall/Bones:Abdominal wall demonstrate no acute findings. Osseous structures demonstrate no acute findings.[ CT/CT abdomen pelvis w con IMPRESSION: No acute findings. No CT evidence of acute appendicitis. Impression dictated by: Osei Bray Jr. DFabiolaOFabiola 10/18/2024 3:56 PM Dictation Location: [employer] Electronically authenticated by: [id number] Y Date: 10/18/2024 15:56
--- NOTE | 2024-10-18 13:56 | ED.GENADUL1 ---
HPI HPI - General Adult General Chief complaint: Abdominal Pain Stated complaint: ABDOMINAL PAIN Time Seen by Provider: 10/18/24 13:52 Source: patient Mode of arrival: walk-in History of Present Illness HPI narrative: 34-year-old male presents for abdominal pain. He developed this pain yesterday and it is in the right lower quadrant and its gotten worse. No trauma or fever. No constipation or diarrhea. He was seen yesterday at a clinic and they told him he might have appendicitis. The pain is severe and continuous. Related Data Home Medications ?Medication ?Instructions ?Recorded ?Confirmed ondansetron 4 mg disintegrating 4 mg PO Q6H PRN nausea and vomiting 10/18/24 10/18/24 tablet ropinirole 1 mg tablet 1 mg PO DAILY 10/18/24 10/18/24 Allergies Allergy/AdvReac Type Severity Reaction Status Date / Time No Known Drug Allergies Allergy Verified 04/04/23 05:15 Review of Systems ROS Narrative A ten point review of systems is negative except as noted above. PFSH PFSH Social History Smoking status: Current every day smoker Little interest or pleasure in doing things: not at all Feeling down, depressed, or hopeless: not at all Exam Narrative Exam Narrative: Nurses note and vital signs reviewed and patient is not hypoxic. General: The patient appears uncomfortable Skin: Warm, dry, no pallor noted. There is no rash noted. Head: Normocephalic, atraumatic Eye: Normal conjunctiva, no drainage Ears, Nose, Mouth, and Throat: oral mucosa is moist. Nares patent. Cardiovascular: Regular Rate and Rhythm Respiratory: Patient is in no distress, no accessory muscle use, lungs are clear to auscultation, no wheezing, rales or rhonchi Back: non-tender GI: Tenderness present in the right lower quadrant without mass Musculoskeletal: The patient has no evidence of calf tenderness, no pitting edema, symmetrical pulses noted bilaterally Neurological: A&O, normal speech Psychiatric: Cooperative Constitutional Vital Signs, click to edit/add: Last Vital Signs Temp 97.9 F 10/18/24 13:06 Pulse 79 10/18/24 13:06 Resp 16 10/18/24 13:06 BP 117/72 10/18/24 13:06 Pulse Ox 99 10/18/24 13:06 O2 Del Method Room Air 10/18/24 13:06 Course Vital Signs Vital signs: Vital Signs Temperature 97.9 F 10/18/24 13:06 Pulse Rate 79 10/18/24 13:06 Respiratory Rate 16 10/18/24 13:06 Blood Pressure 117/72 10/18/24 13:06 Pulse Oximetry 99 10/18/24 13:06 Oxygen Delivery Method Room Air 10/18/24 13:06 Temperature 97.9 F 10/18/24 13:06 Pulse Rate 79 10/18/24 13:06 Respiratory Rate 16 10/18/24 13:06 Blood Pressure 117/72 10/18/24 13:06 Pulse Oximetry 99 10/18/24 13:06 Oxygen Delivery Method Room Air 10/18/24 13:06 Medical Decision Making MDM Narrative Medical decision making narrative: His workup is negative, including CAT scan of the abdomen. No evidence of appendicitis and the rest of his testing is negative as well. Treatment diagnosis and follow-up were discussed with the patient. Differential Diagnosis Differential Diagnosis: Appendicitis, kidney stone, constipation, nonspecific abdominal pain Lab Data Lab results reviewed: Yes I reviewed the patient's lab results Labs: Lab Results 10/18/24 10/18/24 Range/Units 13:12 13:52 WBC 7.6 (4.0-11.0) 10^3/uL RBC 4.51 L (4.70-6.10) 10^6/uL Hgb 13.9 L (14.0-18.0) g/dL Hct 39.8 L (42.0-54.0) % MCV 88.2 (80.0-94.0) fL MCH 30.8 (25.9-34.0) pg MCHC 34.9 (29.9-35.2) g/dL RDW 13.2 (11.0-15.0) % Plt Count 238 (150-450) 10^3/uL MPV 10.0 (9.5-13.5) fL Neut % (Auto) 56.8 (43.0-75.0) % Lymph % (Auto) 33.3 (20.5-60.0) % Mingo % (Auto) 8.4 (1.7-12.0) % Eos % (Auto) 0.5 L (0.9-7.0) % Baso % (Auto) 0.7 (0.2-2.0) % Neut # (Auto) 4.3 (1.4-6.5) 10^3/uL Lymph # (Auto) 2.5 (1.2-3.8) 10^3/uL Mingo # (Auto) 0.6 (0.3-0.8) 10^3/uL Eos # (Auto) 0.0 (0.0-0.7) 10^3/uL Baso # (Auto) 0.1 (0.0-0.1) 10^3/uL Abs Immat Gran (auto) 0.02 (0.00-0.03) 10^3/uL Imm/Tot Granulo (auto) 0.3 (0.0-0.5) % Sodium 140 (136-145) mmol/L Potassium 4.3 (3.5-5.1) mmol/L Chloride 105 (98-107) mmol/L Carbon Dioxide 29.2 (21.0-32.0) mmol/L Anion Gap 10.1 BUN 17.0 (7.0-18.0) mg/dL Creatinine 0.92 (0.70-1.30) mg/dL Est GFR ( Amer) >60 (>=60 mL/min/1.73m^2) Est GFR (Non-Af Amer) >60 (>=60 mL/min/1.73m^2) BUN/Creatinine Ratio 18.5 Glucose 93 (74-106) mg/dL Calcium 9.0 (8.5-10.1) mg/dL Total Bilirubin 0.6 (0.2-1.0) mg/dL Direct Bilirubin 0.1 (0.0-0.2) mg/dL AST 16 (15-37) U/L ALT 35 (16-63) U/L Alkaline Phosphatase 57 (46-116) U/L Total Protein 7.6 (6.4-8.2) g/dL Albumin 4.4 (3.4-5.0) g/dL Globulin 3.2 g/dL Albumin/Globulin Ratio 1.4 Amylase 71 (25-115) U/L Lipase 52.0 (16.0-77.0) U/L Urine Color Yellow (YELLOW) Urine Clarity Clear (CLEAR) Urine pH 5.5 (5.0-9.0) Ur Specific [place] >=1.030 A (1.005-1.025) Urine Protein Negative (NEG/TRACE) mg/dL Urine Glucose (UA) Negative (NEGATIVE) mg/dL Urine Ketones Negative (NEGATIVE) mg/dL Urine Occult Blood Negative (NEGATIVE) Urine Nitrite Negative (NEGATIVE) Urine Bilirubin Negative (NEGATIVE) Urine Urobilinogen 0.2 (0.2-1.0) EU/dL Ur Leukocyte Esterase Negative (NEGATIVE) Urine RBC 0-2 (0-2) #/HPF Urine WBC None seen (NONE SEEN) #/HPF Ur Squamous Epith Cells Rare (NONE/RARE) #/LPF Urine Crystals None seen (None Seen) #/HPF Urine Bacteria Trace A (NONE SEEN) #/HPF Urine Casts None seen (NONE SEEN) #/LPF Urine Mucus None seen (NONE SEEN) Ur Culture Indicated? No Imaging Data CT scan - abdomen: Radiologist's impression: ITS Impressions Abdomen/Pelvis CT 10/18/24 13:56 IMPRESSION: No acute findings. No CT evidence of acute appendicitis. Impression dictated by: Osei Bray Jr., D.O. 10/18/2024 3:56 PM Dictation Location: [employer] Electronically authenticated by: [id number] Y Date: 10/18/2024 15:56 Discharge Plan Discharge Chief Complaint: Abdominal Pain Clinical Impression: Abdominal pain Patient Disposition: Home, Self-Care Time of Disposition Decision: 16:08 Condition: Good Mode of Transportation: Private Vehicle Prescriptions / Home Meds: No Action ondansetron 4 mg tablet,disintegrating 4 mg PO Q6H PRN (Reason: nausea and vomiting) ropinirole 1 mg tablet 1 mg PO DAILY Print Language: Kyrgyz Instructions: Abdominal Pain (ED) Referrals: Dylan Costa [Primary Care Provider] - 1 week
[2024-10-18 14:01] LABS: Hematocrit 39.8 % (42.0-54.0); Hemoglobin 13.9 g/dL (14.0-18.0); Immature Granulocytes Abs Auto 0.02 10^3/uL (0.00-0.03); Immature Granulocytes Pct Auto 0.3 % (0.0-0.5); Lymphocytes Absolute Auto 2.5 10^3/uL (1.2-3.8); Mean Corpuscular HGB Conc 34.9 g/dL (29.9-35.2); Mean Corpuscular Hemoglobin 30.8 pg (25.9-34.0); Mean Corpuscular Volume 88.2 fL (80.0-94.0); Platelet Count 238 10^3/uL (150-450); Red Blood Count 4.51 10^6/uL (4.70-6.10); White Blood Count 7.6 10^3/uL (4.0-11.0)
--- NOTE | 2024-10-18 14:02 | PC.NURSE ---
RLQ pain since yesterday accompanied by N/V, dysuria and some retention.
[2024-10-18] MEDS: MORPHINE SULFATE 4 MG/ML VIAL IV ×2 (14:08→15:57)
[2024-10-18] MEDS: 0.9 % SODIUM CHLORIDE 1,000 ML 200 ML IV (14:09)
[2024-10-18 14:13] LABS: Anion Gap 10.1; Blood Urea Nitrogen 17.0 mg/dL (7.0-18.0); Calcium 9.0 mg/dL (8.5-10.1); Carbon Dioxide 29.2 mmol/L (21.0-32.0); Chloride 105 mmol/L (98-107); Estimated GFR (African America >60 (>=60 mL/min/1.73m^2); Estimated GFR (Non-African Ame >60 (>=60 mL/min/1.73m^2); Glucose 93 mg/dL (74-106); Potassium 4.3 mmol/L (3.5-5.1); Sodium 140 mmol/L (136-145)
[2024-10-18 14:20] LABS: Alanine Aminotransferase 35 U/L (16-63); Albumin Globulin Ratio 1.4; Albumin Level 4.4 g/dL (3.4-5.0); Alkaline Phosphatase 57 U/L (46-116); Amylase 71 U/L (25-115); Aspartate Amino Transferase 16 U/L (15-37); Globulin 3.2 g/dL; Lipase 52.0 U/L (16.0-77.0); Total Protein 7.6 g/dL (6.4-8.2)
[2024-10-18 14:21] LABS: Glucose Urine UA NEGATIVE (NEGATIVE)
[2024-10-18 14:34] LABS: Cast Seen? NONE SEEN #/LPF (NONE SEEN); Crystals Seen? None Seen #/HPF (None Seen); Urine Culture Indicated NO
== END 2024-10-18 16:16 | disposition home or self-care (01) ==
PROVIDERS: Emergency Provider Emergency Medicine; PCP Family Medicine
DX: R10.31 Right lower quadrant pain (principal); R10.84 Generalized abdominal pain
CPT/HCPCS: 36415; 74177; 80048; 80076; 81001; 82150; 83690; 85025; 96374; 96375; 96376; 99285; J2270; J2405; Q9967